=== PATIENT | male | born 1965 | race Caucasian/White ===

== ENCOUNTER 2016-12-25 12:18 | Outpatient (CLI) | payer OTHER | END 2016-12-25 12:19 | disposition home or self-care (01) | DX: M51.36 Other intervertebral disc degeneration, lumbar region (principal); M51.37 Other intervertebral disc degeneration, lumbosacral region; M47.896 Other spondylosis, lumbar region; M47.897 Other spondylosis, lumbosacral region ==

== ENCOUNTER 2018-11-02 07:13 | Emergency (ER) | payer OTHER ==
--- NOTE | 2018-11-02 07:39 | ED Physician Documentation ---
PD HPI CHEST PAIN - Stated complaint Stated Complaint: CHEST PAIN - Chief complaint Chief Complaint: Cardiac - History obtained from History obtained from: Patient - History of Present Illness Timing - onset: How many days ago (8) Timing - onset during: Exertion Timing - duration: Days (8) Timing - details: Abrupt onset, Waxing and waning, Still present in ED Pain level max: 4 Pain level now: 1 Quality: Pressure Location: Substernal Radiation: No: Jaw, Neck, Back, Abdominal, Left upper extremity, Right upper extremity Improved by: Nothing Worsened by: Other (nothing) Associated symptoms: No: Shortness of air, Diaphoresis, Nausea, Vomiting, Feeling faint / dizzy, General Weakness, Palpitations, Cough Similar symptoms before: Has not had sx before Recently seen: Not recently seen - Additional information Additional information: 52 y/o male previously well has developed substernal chest pressure about 8 days ago while working out. The pain has been intermittent, lasting as long as 2 hours and without modifiable factors. He first noticed the pain while working out but since has had pain at rest or with exertion without reason. There are no other symptoms associated. No diaphoresis, light headedness or radiation of pain. The patient takes ranitadine for reflux and has been taking his medications. He has had prior work up for palpitations that resolved and work up included thallium stress test and echo done in 2017. He notes that he has continued to exercise without symptoms. Review of Systems Constitutional: denies: Fever, Chills, Myalgias, Fatigue, Sweats Eyes: denies: Decreased vision Ears: denies: Ear pain Nose: denies: Rhinorrhea / runny nose, Congestion Throat: denies: Sore throat Cardiac: reports: Chest pain / pressure. denies: Palpitations, Pedal edema, Calf pain Respiratory: denies: Dyspnea, Cough GI: denies: Abdominal Pain, Nausea, Vomiting, Constipation, Diarrhea : denies: Dysuria, Frequency Skin: denies: Rash Musculoskeletal: denies: Neck pain, Back pain, Extremity pain Neurologic: denies: Generalized weakness, Focal weakness, Numbness PD PAST MEDICAL HISTORY - Present Medications Home Medications: Ambulatory Orders Medication Instructions Recorded Confirmed Aspirin 1 tab PO DAILY 11/02/18 11/02/18 Atorvastatin [Lipitor] 1 tab PO DAILY 11/02/18 11/02/18 Sucralfate [Carafate] 1 gm PO ACHS #60 tablet 11/02/18 raNITIdine HCl [Ranitidine HCl] 1 cap PO DAILY 11/02/18 11/02/18 - Allergies Allergies/Adverse Reactions: Allergies Allergy/AdvReac Type Severity Reaction Status Date / Time No Known Drug Allergies Allergy Verified 11/02/18 07:24 PD ED PE NORMAL - Vitals Vital signs reviewed: Yes (hypertensive ) - General General: Alert and oriented X 3, No acute distress, Well developed/nourished, Other (physical fit young man in no distress) - HEENT HEENT: Atraumatic, PERRL, EOMI - Neck Neck: Supple, no meningeal sign, No bony TTP - Cardiac Cardiac: RRR, No murmur - Respiratory Respiratory: No respiratory distress, Clear bilaterally, Other (no chest wall tenderness ) - Abdomen Abdomen: Soft, Non tender - Back Back: No CVA TTP, No spinal TTP - Derm Derm: Normal color, Warm and dry, No rash - Extremities Extremities: No deformity, No edema - Neuro Neuro: Alert and oriented X 3, 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, No motor deficit, No sensory deficit, Normal speech Eye Opening: Spontaneous Motor: Obeys Commands Verbal: Oriented GCS Score: 15 - Psych Psych: Normal mood, Normal affect Results - Vitals Vitals: Vital Signs - 24 hr 11/02/18 11/02/18 07:16 07:28 Heart Rate 64 47 L Respiratory 14 12 Rate Blood Pressure 162/100 H 131/82 H O2 Saturation 100 100 Oxygen O2 Source Room air - EKG (time done) 0722 Rate: Rate (enter#) (49) Rhythm: Sinus bradycardia Ischemia: Normal ST segments Other comments: Other comments (RSR' in V1) Compare to prior EKG: Old EKG unavailable Computer interpretation: Agree with computer - Labs Labs: Laboratory Tests 11/02/18 11/02/18 11/02/18 07:15 07:15 07:15 WBC 4.9 RBC 4.60 L Hgb 14.0 Hct 40.8 L MCV 88.8 MCH 30.4 MCHC 34.3 RDW 12.9 Plt Count 195 MPV 10.0 Neut # (Auto) 2.5 Lymph # (Auto) 1.8 [place] # (Auto) 0.5 Eos # (Auto) 0.1 Baso # (Auto) 0.0 Absolute Nucleated RBC 0.00 Nucleated RBC % 0.0 D-Dimer Sodium 135 Potassium 4.0 Chloride 102 Carbon Dioxide 25 Anion Gap 8.0 BUN 23 H Creatinine 1.1 Estimated GFR (MDRD) 71 L Glucose 97 Calcium 9.0 Total Bilirubin 0.7 AST 20 ALT 17 Alkaline Phosphatase 49 Troponin I < 0.04 Total Protein 7.3 Albumin 4.5 Globulin 2.8 Albumin/Globulin Ratio 1.6 Lipase 40 11/02/18 07:15 WBC RBC Hgb Hct MCV MCH MCHC RDW Plt Count MPV Neut # (Auto) Lymph # (Auto) [place] # (Auto) Eos # (Auto) Baso # (Auto) Absolute Nucleated RBC Nucleated RBC % D-Dimer 165.8 L Sodium Potassium Chloride Carbon Dioxide Anion Gap BUN Creatinine Estimated GFR (MDRD) Glucose Calcium Total Bilirubin AST ALT Alkaline Phosphatase Troponin I Total Protein Albumin Globulin Albumin/Globulin Ratio Lipase - Rads (name of study) chest 2 view Radiology: Prelim report reviewed (Impression: 1. Lungs are mildly hyperexpanded with flattening of the diaphragm raising the possibility of air trapping from reactive airway disease or COPD/emphysema. 2. No focal pulmonary consolidation or acute abnormality.), EMP read indepedently, See rad report Procedures - Bedside sono Bedside sono by EMP: With use of bedside ultrasound the gallbladder is imaged it is sonographically nontender with a thin wall and no obvious stones. The heart is imaged and there is no evidence of pericardial effusion. 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 He has 1 out of 10 pain and is administered viscous lidocaine and Mylanta with resolution of his pain. He does have a history of reflux he indicates that he drinks about 2 glasses of wine per night and he is recently had some issue with his reflux symptoms which is pain in the left flank. His usual response this is to take Prilosec instead of ranitidine and I discussed with the patient the addition of sucralfate. Departure - Departure Disposition: 01 Home, Self Care Clinical Impression: Esophagitis, acute Condition: Stable Instructions: ED PUD Vs Gastritis, ED GERD Follow-Up: MILES ACUNA MD [Primary Care Provider] - Prescriptions: Sucralfate [Carafate] 1 gm PO ACHS #60 tablet
[2018-11-02 07:40] LABS: EOSINOPHILS # (AUTO) 0.1 10^3/uL (0.0-0.7); EOSINOPHILS % (AUTO) 1.7 %; LYMPHOCYTES # (AUTO) 1.8 10^3/uL (1.5-3.5); LYMPHOCYTES % (AUTO) 35.8 %; MEAN CORPUSCULAR HEMOGLOBIN 30.4 pg (27.0-31.0); MEAN CORPUSCULAR HGB CONC 34.3 g/dL (32.0-36.0); MEAN CORPUSCULAR VOLUME 88.8 fL (80.0-94.0); MONOCYTES # (AUTO) 0.5 10^3/uL (0.0-1.0); MONOCYTES % (AUTO) 10.3 %; NEUTROPHILS # (AUTO) 2.5 10^3/uL (1.5-6.6); NEUTROPHILS % (AUTO) 51.2 %; PLT - PLATELET COUNT 195 10^3/uL (130-450); RED CELL DISTRIBUTION WIDTH 12.9 % (12.0-15.0); WHITE BLOOD COUNT 4.9 x10^3/uL (4.8-10.8)
[2018-11-02 07:47] LABS: ALBUMIN 4.5 g/dL (3.2-5.5); ALBUMIN/GLOBULIN RATIO 1.6 (1.0-2.2); BILIRUBIN,TOTAL 0.7 mg/dL (0.2-1.0); CREATININE 1.1 mg/dL (0.6-1.2); TOTAL PROTEIN 7.3 g/dL (6.7-8.2)
[2018-11-02] MEDS ORDERED: LIDOCAINE VISCOUS 2% 15 ML UDC MM STA (07:49)
[2018-11-02] MEDS ORDERED: MAG HYDROX/AL HYDROX/SIMETH 30 ML UDC PO STA (07:49)
--- NOTE | 2018-11-02 07:49 | XRAY Report ---
Reason: central chest pain Procedure Date: 11/02/2018 Accession Number: [id number] / [id number] Procedure: XR - Chest 2 View X-Ray CPT Code: 95825 FULL RESULT: EXAM: CHEST RADIOGRAPHY EXAM DATE: 11/02/2018 07:40 AM. CLINICAL HISTORY: Central chest pain. COMPARISON: None. TECHNIQUE: 2 views. FINDINGS: Lungs/Pleura: No focal opacities evident. No pleural effusion. No pneumothorax. Lungs are mildly hyperexpanded with flattening of the diaphragm. Mediastinum: Heart and mediastinal contours are unremarkable. Other: No acute osseous abnormality. IMPRESSION: 1. Lungs are mildly hyperexpanded with flattening of the diaphragm, raising the possibility of air trapping from reactive airway disease or COPD/emphysema. 2. No focal pulmonary consolidation or other acute abnormality. RADIA
[2018-11-02 08:21] VITALS: BP 128/88
== END 2018-11-02 08:22 | disposition home or self-care (01) ==
LOC: ED 07:13
DX: K21.0 Gastro-esophageal reflux disease with esophagitis (principal); R00.1 Bradycardia, unspecified; Z79.82 Long term (current) use of aspirin
CPT/HCPCS: 36415; 71046; 80053; 83690; 84484; 85025; 85379; 93005; 99283; 99284; A9270

== ENCOUNTER 2020-02-23 09:24 | Outpatient (CLI) | payer OTHER ==
[2020-02-23] MEDS ORDERED: GADOBUTROL 7.5 MMOL/7.5 ML VIAL ONE (09:49)
[2020-02-23] MEDS ORDERED: GADOBUTROL 7.5 MMOL/7.5 ML VIAL IVP ONE (10:28)
--- NOTE | 2020-02-23 14:34 | MRI Report ---
Reason: HEADACHE, TINNITUS Procedure Date: 02/23/2020 Accession Number: [id number] / [id number] Procedure: MRI - Brain W/WO CPT Code: Final Report FULL RESULT: PROCEDURE: Brain W/WO INDICATIONS: HEADACHE, TINNITUS CONTRAST: IV CONTRAST: Gadavist ml: 7 TECHNIQUE: Noncontrast axial T1 spin echo, axial T2 fast spin echo, sagittal and axial FLAIR, coronal T2 fast spin echo, axial gradient echo, axial diffusion and ADC through the brain. After the administration of contrast, axial and coronal T1 spin echo with fat saturation through the brain. COMPARISON: None. FINDINGS: Image quality: Excellent. CSF spaces: Basal cisterns are patent. No extra-axial fluid collections. Ventricles are normal in size and shape. Brain: No midline shift. No intracranial bleeds or masses. No abnormal intracranial enhancement. There is cerebral volume loss for age. There is periventricular white matter chronic small vessel ischemic change. The brainstem appears normal. Diffusion-weighted images demonstrate no acute ischemic insults. No chronic ischemic insults. Normal intravascular flow voids are present. Visualized cranial nerves demonstrate no areas of abnormal enhancement, signal or mass lesion. Skull and face: Calvarial marrow is normal in signal. Orbits appear normal. Sinuses: Sinuses and mastoids appear clear. IMPRESSION: 1. No acute intracranial process. 2. Visualized cranial nerves demonstrate no areas of abnormal enhancement, signal or mass lesion. Reviewed by: Ashley Dumas MD on 02/23/2020 2:33 PM PDT Approved by: Ashley Dumas MD on 02/23/2020 2:33 PM PDT Station ID: [id number]
== END 2020-02-23 09:25 | disposition home or self-care (01) ==
LOC: DI 09:24
PROVIDERS: ATTEND Family Medicine
DX: R51 Headache (principal); H93.19 Tinnitus, unspecified ear
CPT/HCPCS: 70553; A9585

== ENCOUNTER 2023-06-25 09:46 | Outpatient (CLI) | payer OTHER ==
--- NOTE | 2023-06-25 17:49 | MRI Report ---
PROCEDURE: ANKLE WO - LT INDICATIONS: FOOT PAIN Additional information: Suspected navicular stress fracture. TECHNIQUE: Noncontrast Magnetic Resonance Imaging (MRI) of the ankle/hindfoot was performed utilizing the follow ing sequences: sagittal T1 spin echo, sagittal T2 fast spin echo with fat saturation, axial PD fast s pin echo, axial T2 fast spin echo with fat saturation, coronal T1 spin echo, and coronal T2 fast spin echo with fat saturation. COMPARISON: Left foot MRI 06/03/2023 FINDINGS: Image quality: Excellent. Bones and joints: No acute trabecular bone injury or fracture. Navicular bone is intact. No hindfoot coalition. Chronic osteochondral lesion is seen at the lateral talar dome measuring 7 x 8 x 5 mm with cartilage loss, s ubchondral cystic changes, and mild irregularity of the subchondral plate. No loose osteochondral fra gment is seen. Tiny 3 mm osteochondral lesion is seen at the medial talar dome with overlying cartila ge loss and focal subchondral cystic changes. Medial structures: The deltoid ligament and the spring ligament complex are intact. The posterior tibialis, flexor digit orum longus, and flexor hallucis longus tendons are intact. The posterior tibial neurovascular bundle appears normal within the tarsal tunnel, without extrinsic mass effect. Lateral structures: The anterior and posterior distal tibiofibular ligaments are intact. Remote prior sprains of the ante rior talofibular ligament, calcaneofibular ligament and posterior talofibular ligament. Moderate to s evere fluid is seen surrounding the peroneus brevis and longus tendons consistent with tenosynovitis. The sinus tarsi demonstrates normal fatty signal. Anterior structures: The tibialis anterior, extensor hallucis longus, and extensor digitorum longus tendons appear intact. Posterior and plantar structures: The Achilles tendon is intact. The proximal plantar fascia is intact. No disproportionate atrophy of the abductor digiti minimi muscle. IMPRESSION: 1.Navicular bone is intact. No acute trabecular bone injury or fracture. 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 No loose osteochondral fragment is seen. Additional similar-appearing tiny 3 mm osteochondral lesion is seen at the medial talar dom e. 3.Moderate to severe peroneus brevis and longus tenosynovitis. No tendon tearing is seen. 4.Remote prior grade 1-2 sprains of the lateral ankle ligaments. Reviewed by: Elier Wick MD on 06/25/2023 5:48 PM PDT Approved by: Elier Wick MD on 06/25/2023 5:48 PM PDT Station ID: [id number]
== END 2023-06-25 09:47 | disposition home or self-care (01) ==
LOC: DI 09:46
PROVIDERS: ATTEND Family Medicine
DX: M85.872 Other specified disorders of bone density and structure, left ankle and foot (principal); M65.9 Synovitis and tenosynovitis, unspecified